=== PATIENT | male | born 1995 | race Asian ===

== ENCOUNTER → 2018-06-12 | Outpatient (CLI) | payer OTHER ==
--- NOTE | 2018-06-12 15:36 | ECHO ---
[email or web address] [address] [address] Main: [phone] Fax: Transthoracic Echocardiogram Name: ELVIS JERONIMO MR#: [id number] Study Date: 06/12/2018 Study Time: 02:22 PM Date of : 1995 Age: 22 year(s) Height: 180.3 cm (71 in.) Weight: 74.84 kg (165 lb.) BSA: 1.94 m2 Gender: Male Examination: Echo Indication: Palpitations, insomnia Image Quality: Adequate Contrast: Requested by: Edmundo Mejia BP: / Heart Rate: Rhythm: Indication: Palpitations, insomnia Procedure Staff Estimation Manager: Michelle Laureano [facility] Reading Physician: Abel Youngblood MD Requesting Provider: Conclusions: Normal size left ventricle. The ejection fraction is visually estimated to be 65 %. No regional wall motion abnormality. Normal RV function. The mitral valve is normal in appearance and function. Trivial mitral valve regurgitation. The aortic valve is tri-leaflet. The tricuspid valve is normal in appearance and function. Trivial tricuspid valve regurgitation. No pericardial effusion. No pleural effusion. There is no previous echocardiogram for comparison. Measurements: Chambers Valvular Assessment AV/MV Valvular Assessment TV/PV Normal Normal Normal Name Value Range Name Value Range Name Value Range Ao Frida (2D): 2.6 cm (1.4 cm-2.6 AV Vmax: 1.19 m/s (1 m/s-1.7 PV Vmax: 1.11 m/s (0.6 m/s-0.9 cm) m/s) m/s) IVSd (2D): 0.8 cm (0.6 cm-1.1 AV maxP mmHg ( - ) PV PGmax: 5 mmHg ( - ) cm) AV meanP mmHg ( - ) LVDd (2D): 4.1 cm (4.2 cm-5.9 MV E Vmax: 0.87 m/s ( - ) cm) MV A Vmax: 0.46 m/s ( - ) LVDs (2D): 2.8 cm (2.1 cm-4 MV E/A: 1.89 ( - ) cm) MV PHT: 0.061 s ( - ) LVPWd (2D): 0.7 cm (0.6 cm-1 cm) MVA (PHT): 3.6 s ( - ) LVEF (BP): 68 % (>=55 %) Visual EF: 65 % RVDd(2D): 2.6 cm (1.9 cm-3.8 cmmm) Patient: ELVIS JERONIMO Study Date: 06/12/2018 Page 1 of 2 02:22 PM Continued Measurements: Chambers Valvular Assessment AV/MV Name Value Name Value LADs: 2.8 cm MV DecTime: 204 m/s LADs Lon.4 cm MV E' Septal: 0.17 m/s LA Area: 10.2 cm2 MV E/E' Septal: 5.10 LA Volume: 22 ml MV E/E' Lateral: 4.20 LA Volume Index: 11.3 ml/m2 RA Area: 13.5 cm2 Additional Vessels Name Value Ao Ascendin.4 cm Inferior Vena Cava: 1.4 cm Findings: Left Ventricle: Normal size left ventricle. No LV hypertrophy. Normal global systolic LV function. The ejection fraction is visually estimated to be 65 %. No regional wall motion abnormality. Normal diastolic LV function. Right Ventricle: Normal size right ventricle. Normal RV function. Left Atrium: The left atrium is normal in size. Right Atrium: The right atrium is normal in size. Mitral Valve: The mitral valve is normal in appearance and function. Trivial mitral valve regurgitation. No mitral stenosis is present. Aortic Valve: The aortic valve is tri-leaflet. There is no significant aortic valve regurgitation. No aortic valve stenosis is present. Tricuspid Valve: The tricuspid valve is normal in appearance and function. Trivial tricuspid valve regurgitation. Pulmonic Valve: The pulmonic valve is normal in appearance and function. There is no pulmonic regurgitation seen. Aorta: The aorta is normal. Normal size aortic root measuring 2.6 cm. Normal size ascending aorta measuring 2.4 cm. IVC: The IVC is normal sized. Pericardium: No pericardial effusion. No pleural effusion. (No Signature Object) Patient: ELVIS JERONIMO Study Date: 06/12/2018 Page 2 of 2 02:22 PM [id number]
== END ==
LOC: FCP 14:07
PROVIDERS: ATTEND Family Medicine
DX: R00.2 Palpitations (principal); F41.9 Anxiety disorder, unspecified